=== PATIENT | female | born 1970 | race Caucasian/White ===

== ENCOUNTER → 2018-02-08 | Outpatient (CLI) | payer OTHER ==
[2018-02-08 09:49] LABS: HEMATOCRIT 41.4 % (36.0-47.0); HEMOGLOBIN 14.1 g/dl (12.0-15.5); MEAN CORPUSCULAR HEMOGLOBIN 32.8 pg (27.0-33.0); MEAN CORPUSCULAR HGB CONC 34.1 g/dl (32.0-36.5); MEAN CORPUSCULAR VOLUME 96.3 fl (80.0-96.0); PLATELET COUNT, AUTOMATED 299 10^3/uL (150-450); RED CELL DISTRIBUTION WIDTH 12.6 % (11.5-14.5); WHITE BLOOD COUNT 10.8 10^3/uL (4.0-10.0)
[2018-02-08 10:30] LABS: ALBUMIN 3.9 GM/DL (3.2-5.2); ALBUMIN/GLOBULIN RATIO 0.95 (1.00-1.93); ALKALINE PHOSPHATASE 79 U/L (45-117); ALT/SGPT 49 U/L (12-78); ANION GAP 7 MEQ/L (8-16); AST/SGOT 30 U/L (7-37); BILIRUBIN,TOTAL 0.3 MG/DL (0.2-1.0); BLOOD UREA NITROGEN 15 MG/DL (7-18); CALCIUM LEVEL 8.8 MG/DL (8.5-10.1); CARBON DIOXIDE LEVEL 25 MEQ/L (21-32); CHLORIDE LEVEL 107 MEQ/L (98-107); CHOLESTEROL LEVEL 235 MG/DL (<200); CHOLESTEROL RISK RATIO 4.351 (<5); CREATININE FOR GFR 0.84 MG/DL (0.55-1.30); GLOMERULAR FILTRATION RATE > 60.0 (>58); GLUCOSE, FASTING 101 MG/DL (70-100); HDL CHOLESTEROL 54 MG/DL (>40); LDL CHOLESTEROL 136.4 MG/DL (<100); NON-HDL-C 181 MG/DL; SODIUM LEVEL 139 MEQ/L (136-145); TRIGLYCERIDES LEVEL 223 MG/DL (<150)
[2018-02-08 11:29] LABS: ESTIMATED AVERAGE GLUCOSE 120 MG/DL (60-110); HEMOGLOBIN A1c 5.8 %
[2018-02-08 11:56] LABS: TOTAL 25(OH) VITAMIN D 15.9 NG/ML (30.0-100.0)
== END ==
LOC: M LAB 09:20
DX: R53.83 Other fatigue (principal); I10 Essential (primary) hypertension; E03.9 Hypothyroidism, unspecified
CPT/HCPCS: 84443

== ENCOUNTER → 2019-08-03 | Outpatient (CLI) | payer OTHER ==
[~2019-08-03] MED LIST: /OMEP10CA; ANEXSIA PO; BACL10TA2 OR; GABA300C2 PO; IBUP800T OR; IBUPOTC PO; LISI-538 PO; MAPA500T17 PO; PERC5TAB8 OR; TALWIN NX; TRAM50TA2 OR; TRAM50TA2 PO; VICO5TAB; VICO5TAB OR; hctz PO
--- NOTE | 2019-08-03 21:46 | REP ---
CHEST, TWO VIEWS: COMPARISON: 08/16/2008 There is no evidence of acute infiltrate. No pleural effusion is seen. The heart is normal in size. The mediastinal silhouette is unremarkable. The visualized osseous structures are intact. IMPRESSION: No acute pulmonary disease. Electronically Signed by Kings Roth MD 08/04/2019 03:35 P
== END ==
LOC: M RAD 17:26
PROVIDERS: ATTEND Family Medicine
DX: J44.9 Chronic obstructive pulmonary disease, unspecified (principal)

== ENCOUNTER → 2019-08-07 | Outpatient (CLI) | payer OTHER ==
--- NOTE | 2019-08-07 21:51 | ECGEPIP ---
[facility] Test Date: 2019-08-07 Pat Name: BRIAN BOLDEN Department: Room: - Gender: Female Lens Dotter: RASHEED : 1970 Requested By: Sree Snyder Order Number: [id number] Reading MD: Kris Cunha Measurements Intervals [place] Rate: 86 P: 2 MD: 123 QRS: 24 QRSD: 94 T: 41 QT: 342 QTc: 409 Interpretive Statements SINUS RHYTHM WNL No prior ECG available for comparison. Electronically Signed on 08-07-2019 21:51:36 EDT by Kris Cunha
== END ==
LOC: M EKG 12:01
PROVIDERS: ATTEND Family Medicine
DX: Z01.818 Encounter for other preprocedural examination (principal)

== ENCOUNTER 2020-04-08 11:58 | Emergency (ER) | payer OTHER ==
[~2020-04-08] VITALS: Ht 160 cm; Wt 77.8 kg
--- NOTE | 2020-04-08 12:52 | REP ---
Clinical: Acute chest pain . Comparison: 08/03/2019 . Findings: The mediastinum and cardiac silhouette are stable and within normal limits for portable technique. The lung azul are clear without acute consolidation, effusion, or pneumothorax. Skeletal structures are intact. Impression: No acute cardiopulmonary process appreciated. Electronically Signed by Javier Tyler MD 04/08/2020 12:43 P
[2020-04-08 12:54] LABS: BASO % 0.3 % (0.0-1.0); EOS # 0.1 10^3/uL (0.0-0.5); EOS % 1.3 % (0.0-3.0); HEMATOCRIT 35.4 % (36.0-47.0); HEMOGLOBIN 11.7 g/dl (12.0-15.5); LYMPH # 2.7 10^3/uL (1.5-5.0); MEAN CORPUSCULAR HEMOGLOBIN 30.3 pg (27.0-33.0); MEAN CORPUSCULAR HGB CONC 33.1 g/dl (32.0-36.5); MEAN CORPUSCULAR VOLUME 91.7 fl (80.0-96.0); MONO # 0.8 10^3/uL (0.0-0.8); MONO % 8.6 % (0.0-5.0); NEUTROPHILS # 5.1 10^3/uL (1.5-8.5); NEUTROPHILS % 58.6 % (36.0-66.0); PLATELET COUNT, AUTOMATED 230 10^3/uL (150-450); RED BLOOD COUNT 3.86 10^6/uL (4.00-5.40); WHITE BLOOD COUNT 8.8 10^3/uL (4.0-10.0)
[2020-04-08] MEDS ORDERED: DICYCLOMINE INJ 20MG/2ML (J0500) IM ONE (13:15)
[2020-04-08 13:20] LABS: ALBUMIN 3.3 GM/DL (3.2-5.2); BILIRUBIN,DIRECT 0.1 MG/DL (0.0-0.2); BILIRUBIN,TOTAL 0.4 MG/DL (0.2-1.0); TOTAL PROTEIN 6.8 GM/DL (6.4-8.2)
[2020-04-08] MEDS ORDERED: LISI-538 (13:32)
[2020-04-08] MEDS ORDERED: FURO20TA2 (13:32)
[2020-04-08] MEDS ORDERED: LEVO150T7 (13:32)
[2020-04-08 14:02] VITALS: BP 123/63
[2020-04-08] MEDS: GASTROGRAFIN SOLUTION 30ML PO SCH ×2 (14:18→14:44)
[2020-04-08 14:43] LABS: AMPHETAMINES LEVEL URINE NEGATIVE (NEGATIVE); BARBITURATES URINE NEGATIVE (NEGATIVE); BENZODIAZEPINES URINE NEGATIVE (NEGATIVE); CANNABINOIDS URINE POSITIVE (NEGATIVE); COCAINE METABOLITE URINE NEGATIVE (NEGATIVE); METHADONE URINE NEGATIVE (NEGATIVE); OPIATES URINE NEGATIVE (NEGATIVE); PHENCYCLIDINE URINE NEGATIVE (NEGATIVE)
[2020-04-08] MEDS ORDERED: ISOVUE-370 76% 100ML VIAL As Ordered ONE (15:28)
--- NOTE | 2020-04-08 16:41 | REP ---
Clinical: Abdominal pain. History of gastric bypass surgery. Technique: Axial contrast enhanced images from the lung bases to the pubic symphysis using oral (per protocol) and 100 ml Isovue 370 intravenous contrast material with coronal and sagittal re-formations. Findings: Lung bases are clear. Visualized heart and pericardium normal. Fatty infiltration to the liver noted. Spleen, pancreas, gallbladder, bilateral adrenal glands and kidneys are normal. There is evidence for gastric bypass surgery without obvious significant abnormality and without evidence for perforation or adjacent free fluid. Remainder of the small large bowel is without obstruction. Pelvis demonstrates normal bladder and age-appropriate uterus/left adnexa. Right ovarian cyst and small amount of right adnexal fluid is likely physiologic and related to menstrual cycle. Small fat containing ventral hernias noted. Abdominal aorta without aneurysm or dissection. Evidence for prior lumbar laminectomy. Impression: 1. Evidence for gastric bypass surgery without free air or free fluid to suggest perforation and no dilatation to suggest obstruction. 2. Right ovarian cyst with small amount of adjacent fluid likely physiologic. 3. Hepatic steatosis. Electronically Signed by Javier Tyler MD 04/08/2020 04:32 P
[2020-04-08] MEDS ORDERED: DICY10CA13 PO (18:07)
[2020-04-08] MEDS ORDERED: CARA1TAB6 PO (18:18)
== END 2020-04-08 18:26 | disposition home or self-care (01) ==
LOC: M ED 11:58
DX: R10.13 Epigastric pain (principal); R11.0 Nausea; R19.7 Diarrhea, unspecified; I10 Essential (primary) hypertension; M54.9 Dorsalgia, unspecified; Z87.42 Personal history of other diseases of the female genital tract; F17.200 Nicotine dependence, unspecified, uncomplicated; Z91.040 Latex allergy status; Z98.84 Bariatric surgery status; Z79.899 Other long term (current) drug therapy
CPT/HCPCS: 71045; 74177; 80047; 80076; 80307; 83690; 85025; 93041; 96372; 99284; J0500; Q9963; Q9967

== ENCOUNTER → 2021-09-18 | Outpatient (CLI) | payer OTHER ==
[~2021-09-18] MED LIST changes: +CARA1TAB6 PO; +DICY10CA13 PO; +FURO20TA2; +LEVO150T7; -LISI-538 PO; +LISI20TA33; +LISI20TA33 PO
[2021-09-18 12:31] LABS: HEMATOCRIT 23.7 % (36.0-47.0); HEMOGLOBIN 7.8 g/dl (12.0-15.5); MEAN CORPUSCULAR HEMOGLOBIN 33.3 pg (27.0-33.0); MEAN CORPUSCULAR HGB CONC 32.9 g/dl (32.0-36.5); MEAN CORPUSCULAR VOLUME 101.3 fl (80.0-96.0); PLATELET COUNT, AUTOMATED 286 10^3/uL (150-450); RED BLOOD COUNT 2.34 10^6/uL (4.00-5.40)
[2021-09-18 13:03] LABS: ALBUMIN 3.3 GM/DL (3.2-5.2); ALT/SGPT 20 U/L (12-78); BILIRUBIN,TOTAL 0.2 MG/DL (0.2-1.0); BLOOD UREA NITROGEN 18 MG/DL (7-18); CALCIUM LEVEL 8.5 MG/DL (8.5-10.1); CARBON DIOXIDE LEVEL 24 MEQ/L (21-32); CHLORIDE LEVEL 112 MEQ/L (98-107); CREATININE FOR GFR 0.75 MG/DL (0.55-1.30); GLOMERULAR FILTRATION RATE > 60.0 (>58); GLUCOSE, FASTING 120 MG/DL (70-100); IRON (FE) 89 UG/DL (50-170); PERCENT SATURATION 21.1 % (13.2-45.0); POTASSIUM SERUM 3.7 MEQ/L (3.5-5.1); SODIUM LEVEL 142 MEQ/L (136-145); TOTAL IRON BINDING CAPACITY 421 UG/DL (250-450); TOTAL PROTEIN 6.3 GM/DL (6.4-8.2)
[2021-09-18 13:07] LABS: TOTAL 25(OH) VITAMIN D 28.4 NG/ML (30.0-100.0)
== END ==
LOC: M RAD 11:14
PROVIDERS: ATTEND Family Medicine
DX: D64.9 Anemia, unspecified (principal); R53.83 Other fatigue; J44.9 Chronic obstructive pulmonary disease, unspecified